=== PATIENT | female | born 1990 | race African-American/Black ===

== ENCOUNTER 2017-12-12 10:03 | Day surgery (SDC) | payer OTHER ==
[~2017-12-12 10:03] MED LIST: ACETAMINOPHEN 1000 MG/100 ML IVPB; CA CHLORIDE 10% 10 ML SYRINGE; CEFAZOLIN 1 GM INJ; GLYCOPYRROLATE 0.4 MG INJ; HYDROmorphONE 2 MG/ML SYG; METOCLOPRAMIDE 10 MG INJ; METOPROLOL 5 MG INJ
[2017-12-12] MEDS ORDERED: FENTAnyl 50 MCG/ML VIAL ×2 (11:28→13:45)
[2017-12-12] MEDS ORDERED: MIDAZOLAM 1 MG/ML 2 ML INJ (11:29)
[2017-12-12] MEDS ORDERED: PROPOFOL 20 ML (12:49)
[2017-12-12] MEDS ORDERED: SUCCINYLCHOLINE CHLORIDE 100 MG/5 ML SYG IV (12:49)
[2017-12-12] MEDS ORDERED: ROCURONIUM 50 MG INJ (12:49)
[2017-12-12] MEDS ORDERED: LABETALOL HCL 20MG INJ (12:50)
[2017-12-12] MEDS ORDERED: ONDANSETRON 4 MG INJ (12:50)
[2017-12-12] MEDS ORDERED: DEXAMETHASONE 4 MG/ML 1 ML INJ (12:51)
[2017-12-12] MEDS ORDERED: LIDOCAINE 1%/EPI 30 ML INJ (13:35)
[2017-12-12] MEDS: LIDOCAINE 1%/EPI 30 ML INJ (14:19)
[2017-12-12] MEDS: OXYMETAZOLINE 0.05% 15 ML NAS SPRAY NASAL (14:20)
[2017-12-12] MEDS ORDERED: HALOPERIDOL 5 MG INJ IV (17:00)
[2017-12-12] MEDS ORDERED: ONDANSETRON 4 MG INJ IV ×2 (17:00→18:30)
[2017-12-12] MEDS ORDERED: hydrALAzine 20 MG INJ IV (17:00)
[2017-12-12] MEDS ORDERED: MEPERIDINE 25 MG INJ IV (17:00)
[2017-12-12] MEDS ORDERED: DIPHENHYDRAMINE 50 MG INJ IV (17:00)
[2017-12-12] MEDS ORDERED: FENTAnyl 50 MCG/ML VIAL IV ×2 (17:00)
[2017-12-12] MEDS ORDERED: HYDROmorphONE (0.2 MG/ML) 10ML SYG IV ×3 (17:00)
[2017-12-12] MEDS ORDERED: MIDAZOLAM 1 MG/ML 2 ML INJ IV (17:00)
[2017-12-12] MEDS ORDERED: METOCLOPRAMIDE 10 MG INJ IV (17:00)
[2017-12-12] MEDS ORDERED: LABETALOL HCL 20MG INJ IV (17:00)
[2017-12-12] MEDS ORDERED: BACITRACIN/POLYMYXIN 28.35 GM OINT TOP (18:06)
[2017-12-12] MEDS ORDERED: LACTATED RINGER'S 1,000 ML IV (18:17)
[2017-12-12] MEDS ORDERED: HYDROCODONE/APAP (5/325) TAB PO (18:30)
[2017-12-12] MEDS ORDERED: morphine 2 MG INJ IV (18:30)
== END 2017-12-12 20:15 | disposition home or self-care (01) ==
LOC: SDS 10:03
DX: K64.8 Other hemorrhoids (principal)
CPT/HCPCS: 30420; 84703